=== PATIENT | male | born 1950 | race Caucasian/White ===

== ENCOUNTER 2019-11-23 14:32 | Inpatient (IN) | payer MEDICARE, OTHER ==
[2019-11-23] MEDS ORDERED: Ondansetron PF 4 MG/2 ML Vial ONE (16:05)
--- NOTE | 2019-11-23 16:21 | PDOC.FPRHP ---
- History of Present Illness Chief Complaint: Nausea History of Present Illness: 68 y/o M presented with nausea, biliary emesis, and abdominal pain that started this morning. Pt described the pain as throbbing and states that he has had hernia surgeries in the past and occasionally has pain with his current umbilical hernia however, his pain and nausea was worsening so he decided to come to the ER. He denied fever/chills, CP/SOB, diarrhea and constipation. ED Course: At [facility]: CT of abdomen showed strangulation of small bowel. He was given phenergan, afrin, 1L NS, 8mg zofran. Our ED: Hernia was reduced at bedside by Dr. Mcqueen. Pt made NPO and NG tube was placed. Pt given 4mg zofran. - History PMHx: -HTN -HLD PSHx: -Umbilical hernia repair as child -Left inguinal hernia repair -Valve replacement (mitral), 2019 -s/p removal of kidney due to cysts -appendectomy -cholecystecomy FHx: -CAD: father -mother still alive Social: denies etoh, tobacco, drug use. - Review of Systems General: denies: fever/chills, night sweats ENT: denies: nasal congestion, rhinorrhea Respiratory: denies: cough, congestion, shortness of breath Cardiovascular: denies: chest pain, palpitation, edema Gastrointestinal: reports: nausea, vomiting, abdominal pain. denies: diarrhea, constipation Genitourinary: denies: incontinence, dysuria, polyuria Musculoskeletal: denies: pain, tenderness, swelling - Vital signs BP: 181/102, HR 67, RR 12, 96%, Temp 98.2 - Physical Exam Constitutional: NAD, awake, alert and oriented HEENT: normocephalic and atraumatic Neck: supple Heart: RRR, normal S1/S2, no murmurs/rubs/gallops Lungs: CTAB, no respiratory distress, good air movement, no wheezing Abdomen: soft, bowel sounds present, other (2-2.5cm hernia defect noticed on LLQ , no tenderness to palpation) Skin: no rash/lesions, no jaundice Psychiatric: normal mood and affect, good judgment and insight, intact recent and remote memory FMR H&P: Results - Labs Result Diagrams: 11/24/19 06:25 11/24/19 06:25 Lab results: Outside ER labs: Lactic acid = 1.3, WBC = 11.0 - Radiology Interpretation CT scan - abdomen Status: report reviewed by me (Left paraumbilical hernia containing loop of small bowel with small bowel obstruction and probable strangulation) FMR H&P: A/P - Problem List (1) Strangulation obstruction of intestine Current Visit: Yes Status: Acute Code(s): K56.2 - VOLVULUS (2) HTN (hypertension) Current Visit: Yes Status: Acute Code(s): I10 - ESSENTIAL (PRIMARY) HYPERTENSION (3) HLD (hyperlipidemia) Current Visit: Yes Status: Acute Code(s): E78.5 - HYPERLIPIDEMIA, UNSPECIFIED - Plan 68 y/o M PMHx with HTN and HLD presented with nausea, emesis, and abdominal pain. ##Strangulated hernia -s/p manual reduction by Dr. Mcqueen -lactic = 1.3 -wbc = 11.0 -NPO with NG tube -zofran prn -LR @ 150mL -repeat CBC, BMP in AM ##HTN -home meds: verapamil and metoprolol -IV labetolol -monitor vitals Code: Full VTE PPX: lovenox GI PPX: famotidine Diet: NPO PCP: Yancy Dispo: admitted to observation. monitor pt and symptoms overnight. if does well overnight with no increasing signs of abdominal pain will likely d/c NG tube in AM and initiate diet. FMR H&P: Upper Level - Plan Date/Time: 11/23/19 1620 I, [Tisha Godfrey], have evaluated this patient and agree with findings/plan as outlined by internet marketing intern resident. Pertinent changes/additions are listed here. 68 yo M with hx of multiple abdominopelvic surgeries presented to ER for abdominal pain. Started this morning with associatedemesis starting this morning. Was found to have incarcerated paraumbilical hernia with concern for bowel strangulation on CT. Gen surgeon consulted and reduced hernia at bedside. Pt reports pain much improved after this. Per surgeons request he is being admitted for continued observation. ER: 1L NS bolus, Phenergan 25mg, Zofran 4mg, Hurricaine spray, NGT placed PSxHx: hx of inguinal hernia repair VS: 159/114mmHg, 97.8F, 99% RA 19RR/min PE: Gen-NAD, resting comfortably CV: RRR, no rubs or gallups Resp: CTAB, no resp. distress Abd: Soft, ND, NT, normoactive BS, no erythema around hernia Extrem: No edema, pulses palpated Labs: WBC 11, no bands Na 140 K3.9 Cl 109 HCO3 19 Cr 1.[address] Abd: Left paraumbilical bowel herniation with incarceration and possible strangulation #Paraumbilical hernia with incarceration/herniation -s/p bedside reduction by general surgeon -NGT in place, continue, NPO, mIVF -PRN antiemetics -admit to medical/obs for overnight observation -Consult gen srug #HTN -Antihypertensives PRN since NPO #HLD -Hold for now Diet: NPO, NGT to suction PCP: Yancy Code: Full Addendum - Attending - Attending Attestation Case discussed with Dr. Souza. See note from 11/23
[2019-11-23] MEDS ORDERED: Acetaminophen 325 MG TAB PO PRN (16:22)
[2019-11-23] MEDS ORDERED: Senokot S 8.6-50 MG TAB PO PRN (16:22)
[2019-11-23] MEDS ORDERED: Ondansetron ODT 4 MG TAB PO PRN (16:22)
[2019-11-23] MEDS ORDERED: Bisacodyl 5 MG TAB PO PRN (16:22)
--- NOTE | 2019-11-23 17:22 | PDOC.CONS ---
- Consultation CHIEF COMPLAINT: Abdominal pain HISTORY OF PRESENT ILLNESS: 68-year-old male presents with complaints of abdominal pain associated with nausea and biliary emesis since this morning. The onset of discomfort was last night. He reports that he began with biliary emesis this morning. This prompted presentation to his physician in [place]. He was transferred to [facility] for concern for small bowel obstruction and incarcerated umbilical hernia. Patient reports that he was unaware of the umbilical hernia in the past; however, he did undergo umbilical hernia repair as a child. REVIEW OF SYSTEMS: General: Denies recent weight changes, fever, or chills. Eyes: Denies visual changes, pain, or irritation ENT: Denies changes in hearing, nasal discharge, or sore throat Cardiovascular: Denies chest pain, palpitations, shortness of breath, or edema. Respiratory: Denies cough, shortness of breath, or wheezing Gastrointestinal: Positive per HPI Genitourinary: Denies frequent urination or dysuria Musculoskeletal: Denies pain or restricted motion Integumentary: Denies abnormal rashes, sores, or skin lesions Neurological: Denies numbness, tingling, or weakness. Psychiatric: Denies new onset anxiety or depression Endocrine: Denies temperature intolerances, polyuria, or excessive thirst Hematologic: Denies abnormal bruising or bleeding PAST MEDICAL HISTORY: Hypertension Hyperlipidemia PAST SURGICAL HISTORY: Umbilical hernia repair as a child Left inguinal hernia repair Unknown ureteral surgery Heart valve repair (mitral valve due to mitral regurgitation?) FAMILY HISTORY: Noncontributory SOCIAL HISTORY Non- smoker, denies illicit drug use, endorses occasional alcohol consumption. PHYSICAL EXAM: General: Alert and oriented, no acute distress ENT: Sclera anicteric, pupils equal and reactive, mucous membranes moist Neck: No jugular venous distention, trachea midline Cardiovascular: Regular rate and rhythm Pulmonary: Clear to auscultation Abdominal: Well-healed midline surgical incision. Periumbilical mass consistent with periumbilical hernia. Genitourinary: Normal anatomy Rectal: Deferred Integument: No abnormal rashes or lesions Musculoskeletal: No gross deformities or edema, normal range of motion LABORATORY: Laboratory analysis reviewed and is grossly normal. IMAGING: CT findings discussed with emergency room attending. Demonstrates findings consistent with possible small bowel obstruction due to periumbilical hernia. ASSESSMENT: 68-year-old male with partial small bowel obstruction due to periumbilical hernia. Hernia reduced in the emergency department. The natural history of incisional hernia/recurrent hernia was discussed in detail with the patient and he was encouraged to seek operative repair electively. PLAN: Recommend observation overnight with hospitalist service. Recommend continuation of nasogastric tube through the night with likely discontinuation in the morning and initiation of diet. If the patient is doing well with no signs of increasing abdominal pain changes in laboratory values, patient can be safely discharged home with follow-up in clinic for elective incisional hernia repair.
[2019-11-23] MEDS ORDERED: Famotidine/PF 20 mg/2ml Vial SLOW IVP SCH (19:15)
[2019-11-23 19:18] VITALS: BMI 32.1
[2019-11-23] MEDS: Labetalol HCl 100 MG/20 ML VIAL SLOW IVP PRN (19:25)
[2019-11-23] MEDS: Lactated Ringer's 1,000 ML IV SCH (19:26)
[2019-11-23] MEDS ORDERED: Promethazine HCl 12.5 MG in Sodium Chloride 0.9% 50 ML IVPB PRN (22:00)
[2019-11-23] MEDS: Ondansetron PF 4 MG/2 ML Vial IVP PRN (22:07)
[2019-11-24] MEDS: Labetalol HCl 100 MG/20 ML VIAL SLOW IVP PRN ×3 (01:27→19:47)
[2019-11-24] MEDS: Lactated Ringer's 1,000 ML IV SCH ×4 (01:30→20:50)
[2019-11-24] MEDS ORDERED: Ketorolac Tromethamine 30 MG/ML VIAL IVP SCH (05:15)
--- NOTE | 2019-11-24 05:36 | PDOC.FM ---
- Subjective Subjective: Pt resting comfortably at bedside. States that he No acute events overnight. States that he feels much better today and his nausea has abated and would like to eat breakfast. - Objective Vital Signs & Weight: Vital Signs (12 hours) Temp Pulse Resp BP BP Pulse Ox 11/24/19 05:17 75 163/98 H 11/24/19 04:00 98.4 F 71 18 163/93 H 97 11/24/19 01:27 75 163/96 H 11/24/19 00:00 98.5 F 75 18 163/96 H 97 11/23/19 20:22 98.6 F 72 20 173/105 H 98 11/23/19 20:00 98 11/23/19 19:25 70 11/23/19 19:18 98.6 F 70 20 205/118 H 96 Weight Weight 119.522 kg Result Diagrams: 11/24/19 06:25 11/24/19 06:25 Phys Exam - Physical Examination Constitutional: NAD HEENT: PERRLA Respiratory: no wheezing, no rales, no rhonchi, clear to auscultation bilateral Cardiovascular: RRR, no significant murmur, no rub Gastrointestinal: soft, non-tender Musculoskeletal: no edema, pulses present Psychiatric: normal affect, A&O x 3 Dx/Plan - Plan Plan: 68 y/o M PMHx with HTN and HLD presented with nausea, emesis, and abdominal pain. ##Strangulated hernia -s/p manual reduction by Dr. Mcqueen -lactic = 1.3 -wbc = 11.0 -NPO with NG tube -zofran prn -LR @ 150mL -CBC, BMP ##HTN -home meds: verapamil and metoprolol -IV labetolol -monitor vitals Code: Full VTE PPX: lovenox GI PPX: famotidine Diet: NPO PCP: Yancy Dispo: admitted to observation. no increasing signs of abdominal pain will try to progress with clear liquid diet, if tolerates, will progress to full diet. most likely d/c today. Addendum - Attending - Attending Attestation Date/Time: 11/24/192008 I personally evaluated the patient and discussed the management with Dr. Souza. H&P reviewed and repeat by me. I agree with the History, Examination, Assessment and Plan documented above with any addition or exceptions noted below. Encarcerated incisional hernia- reduced by surgery yesterday. Patient feels much improved with minimal nausea and no vomiting. Appreciate surgical recs. HTN- restart home meds.
[2019-11-24 07:01] LABS: #Basophils 0.1 thou/uL (0.0-0.2); #Lymphocytes 1.9 thou/uL (1.20-3.40); #Monocytes 1.6 thou/uL (0.11-0.59); #Neutrophils 11.5 thou/uL (1.40-6.50); %Basophils 0.3 % (0.0-1.0); %Eosinophils 0.1 % (0.0-10.0); %Lymphocytes 12.5 % (21.0-51.0); %Monocytes 10.7 % (0.0-10.0); %Neutrophils 76.3 % (42.0-75.0); Hemoglobin 16.7 g/dL (14.0-18.0); Mean Corpuscular HGB CONC 33.4 g/dL (32.0-36.0); Mean Corpuscular Hemoglobin 29.8 pg (27.0-31.0); Mean Corpuscular Volume 89.2 fL (78.0-98.0); Mean Platelet Volume 7.8 fL (7.4-10.4); Platelet Count 164 thou/uL (130-400); RBC Distribution Width 12.4 % (11.5-14.5); Red Blood Cell (RBC) Count 5.59 mill/uL (4.70-6.10); White Blood Cell (WBC) Count 15.1 thou/uL (4.8-10.8)
[2019-11-24 07:04] LABS: PTT 29.2 sec (22.9-36.1); Prothrombin Time 13.6 sec (12.0-14.7)
[2019-11-24 07:26] LABS: Anion Gap 13 mmol/L (10-20); BUN (Urea Nitrogen) 15 mg/dL (8.4-25.7); Calc. Creatinine Clearance 123 mL/min (70-130); Calcium 9.2 mg/dL (7.8-10.44); Carbon Dioxide 23 mmol/L (23-31); Chloride 106 mmol/L (98-107); Estimated GFR-MDRD 75; Glucose 131 mg/dL (80-115); Potassium 4.1 mmol/L (3.5-5.1); Sodium 138 mmol/L (136-145)
[2019-11-24] MEDS: Enoxaparin Sodium 40 MG/0.4 ML SYRINGE SC SCH (08:43)
[2019-11-24] MEDS: Famotidine/PF 20 mg/2ml Vial SLOW IVP SCH (08:44)
--- NOTE | 2019-11-24 17:14 | PDOC.GSPN ---
Surgery Progress Note: Subj - Subjective Patient reports: no new complaints (Feeling better this morning. Nausea and emesis reduced. Denies abdominal pain.) Surgery Progress Note: Obj - Vital signs Vital signs: Vital Signs - Most Recent Temp Pulse Resp BP Pulse Ox 98.5 F 68 16 159/94 H 98 11/24/19 16:00 11/24/19 16:00 11/24/19 16:00 11/24/19 16:00 11/24/19 16:00 - Physical Exam General: no distress, no pain Cardiovascular: regular rate and rhythm Respiratory: normal respiratory effort Abdomen: soft, non tender, nondistended Hernia: incisional Surgery Progress Note: Results - Labs Result Diagrams: 11/24/19 06:25 11/24/19 06:25 Lab results: Laboratory Results - last 24 hr 11/24/19 11/24/19 11/24/19 06:25 06:25 06:25 WBC 15.1 H RBC 5.59 Hgb 16.7 Hct 49.9 MCV 89.2 MCH 29.8 MCHC 33.4 RDW 12.4 Plt Count 164 MPV 7.8 Neutrophils % 76.3 H Lymphocytes % 12.5 L Monocytes % 10.7 H Eosinophils % 0.1 Basophils % 0.3 Neutrophils # 11.5 H Lymphocytes # 1.9 Monocytes # 1.6 H Eosinophils # 0.0 Basophils # 0.1 PT 13.6 INR 1.0 APTT 29.2 Sodium 138 Potassium 4.1 Chloride 106 Carbon Dioxide 23 Anion Gap 13 BUN 15 Creatinine 1.00 Estimated GFR (MDRD) 75 Glucose 131 H Calcium 9.2 - Radiology Interpretation CT scan - abdomen Status: report reviewed by me (Left paraumbilical hernia containing loop of small bowel with small bowel obstruction and probable strangulation) Surgery Progress Note: A/P - Plan Plan: Patient did not notice that his hernia was out again today and demonstrated that he was unlikely to be compliant with self reduction of hernia contents. Discussed proceeding with incisional hernia repair during this admission. We will plan for incisional hernia repair on November 26, 2019 (Tuesday).
[2019-11-24] MEDS ORDERED: Ketorolac Tromethamine 30 MG/ML VIAL IVP PRN (19:20)
[2019-11-24] MEDS ORDERED: Losartan 25 MG TAB PO SCH (21:00)
[2019-11-24] MEDS ORDERED: hydrALAZINE 20 MG/ML VIAL SLOW IVP PRN ×3 (21:48→22:07)
[2019-11-24] MEDS ORDERED: Labetalol HCl 100 MG/20 ML VIAL SLOW IVP PRN (22:06)
[2019-11-25] MEDS ORDERED: hydrALAZINE 20 MG/ML VIAL SLOW IVP PRN (00:24)
[2019-11-25] MEDS ORDERED: hydrALAZINE 20 MG/ML VIAL SLOW IVP SCH ×2 (00:30→00:36)
[2019-11-25] MEDS: Lactated Ringer's 1,000 ML IV SCH ×2 (00:45→13:55)
[2019-11-25] MEDS ORDERED: diphenhydrAMINE 50 MG/ML VIAL IVP SCH (02:00)
[2019-11-25] MEDS ORDERED: Metoclopramide HCl 10 MG/2 ML VIAL IVP SCH (02:00)
--- NOTE | 2019-11-25 02:01 | PDOC.BPN ---
- Brief Progress Note Nurse called and reported the patient had a headache and felt shaky. His last pressure was 172/72 and she was about to give his labetalol prn. We went to evaluate patient. Patient stated that he has had a headache since admission but it had worsened in the past hour. He notes he is concerned it is related to his anxiety noting he hasn't gotten his effexor and sometimes he gets shaky without it. Neuro exam was performed: CN II-XII were intact, strength intact, sensation intact, reflexes 2+. Heart: regular rate and rhythm, lungs clear to auscultation. Patient denies blurred vision, chest pain, shortness of breath, fever. He notes that his headache and shakiness has vastly improved since we entered the room. We will give benadryl, reglan and tylenol for the headache and to assist with his anxiety. Patient was receiving labetalol while we were in the room. Will get effexor this evening. We will follow up on pressure after the labetalol.
[2019-11-25] MEDS: Acetaminophen 500 MG TAB PO PRN ×2 (02:18→20:38)
--- NOTE | 2019-11-25 06:05 | PDOC.FM ---
- Subjective Subjective: pt resting comfortably in bed this morning. had severe range BPs last night. stated that he had anxiety and a headache last night and attributes this to not being on his antidepressants. vitals stable now states that he does not currently have a headache and is feeling better. - Objective Vital Signs & Weight: Vital Signs (12 hours) Temp Pulse Resp BP BP Pulse Ox 11/25/19 04:00 98.4 F 83 18 113/80 97 11/25/19 02:22 144/91 H 74 L 11/25/19 01:40 74 174/91 H 11/25/19 00:44 72 178/115 H 11/25/19 00:04 64 200/120 H 11/24/19 21:15 169/119 H 11/24/19 20:00 95 11/24/19 19:54 98.6 F 64 18 193/118 H 98 11/24/19 19:47 64 193/118 H Weight Admit Weight 119.748 kg Weight 119.522 kg I&O: 11/23/19 11/24/19 11/25/19 06:59 06:59 06:59 Intake Total 1650 1500 Output Total 850 190 Balance 800 1310 Result Diagrams: 11/25/19 06:20 11/25/19 06:20 Phys Exam - Physical Examination Constitutional: NAD HEENT: PERRLA Respiratory: no wheezing, no rales, no rhonchi Cardiovascular: RRR, no significant murmur, no rub Gastrointestinal: soft (some tenderness on LLQ, can feel hernia defect), positive bowel sounds Musculoskeletal: no edema Dx/Plan - Plan Plan: 68 y/o M PMHx with HTN and HLD presented with nausea, emesis, and abdominal pain. ##Strangulated hernia -s/p manual reduction by Dr. Mcqueen -lactic = 1.3 -wbc = 11.0--15.1--11.8 -NG tube in place -zofran prn -LR @ 150mL -gen surg recs: incisional hernia repair 11/25 due to contents of hernia being out again. -NPO @ 12AM ##HTN -home meds: verapamil and metoprolol and losartan -IV labetolol SBP > 160 -monitor vitals Code: Full VTE PPX: lovenox GI PPX: famotidine Diet: clear liquids, NPO @ 12AM PCP: Yancy Dispo: BP control. no increasing signs of abdominal pain, clear liquid diet until midnight. incisional repair planned for 11/25. Addendum - Attending - Attending Attestation Date/Time: 11/25/19 6375 I personally evaluated the patient and discussed the management with Dr. Souza. I agree with the History, Examination, Assessment and Plan documented above with any addition or exceptions noted below. Incarcerated incisional hernia- not reducible today. Plan for repair tomorrow with surgery HTN- bp elevated overnight- restart home meds today
[2019-11-25 06:35] LABS: #Basophils 0.1 thou/uL (0.0-0.2); #Eosinphils 0.1 thou/uL (0.0-0.7); #Lymphocytes 2.8 thou/uL (1.20-3.40); #Monocytes 1.3 thou/uL (0.11-0.59); #Neutrophils 7.6 thou/uL (1.40-6.50); %Basophils 0.7 % (0.0-1.0); %Eosinophils 0.8 % (0.0-10.0); %Lymphocytes 23.4 % (21.0-51.0); %Monocytes 10.9 % (0.0-10.0); %Neutrophils 64.3 % (42.0-75.0); Mean Corpuscular HGB CONC 31.8 g/dL (32.0-36.0); Mean Corpuscular Hemoglobin 28.9 pg (27.0-31.0); Mean Platelet Volume 7.9 fL (7.4-10.4); Platelet Count 176 thou/uL (130-400); RBC Distribution Width 12.6 % (11.5-14.5); Red Blood Cell (RBC) Count 5.54 mill/uL (4.70-6.10); White Blood Cell (WBC) Count 11.8 thou/uL (4.8-10.8)
[2019-11-25 06:57] LABS: Anion Gap 14 mmol/L (10-20); BUN (Urea Nitrogen) 17 mg/dL (8.4-25.7); Calc. Creatinine Clearance 127 mL/min (70-130); Calcium 9.2 mg/dL (7.8-10.44); Carbon Dioxide 22 mmol/L (23-31); Chloride 107 mmol/L (98-107); Estimated GFR-MDRD 77; Glucose 105 mg/dL (80-115); Potassium 3.7 mmol/L (3.5-5.1); Sodium 139 mmol/L (136-145)
[2019-11-25] MEDS: Venlafaxine HCl XR 150 MG CAP PO SCH (09:03)
[2019-11-25] MEDS: Enoxaparin Sodium 40 MG/0.4 ML SYRINGE SC SCH (09:03)
[2019-11-25] MEDS: Famotidine/PF 20 mg/2ml Vial SLOW IVP SCH (09:03)
--- NOTE | 2019-11-25 13:54 | RAD ---
PORTABLE CHEST: History: Pre-op FINDINGS: Heart size within normal limits. An aortic valve stent is present. NG tube is below the hemidiaphragm . The lungs are clear of infiltrates. IMPRESSION: No active intrathoracic disease. POS: ARNOL
--- NOTE | 2019-11-25 14:51 | CON ---
DATE OF CONSULTATION: REASON FOR CONSULTATION: Preoperative evaluation. PRIMARY DELIVERY TECHNICIAN: Dr. Stephon Benoit, [facility]. HISTORY OF PRESENT ILLNESS: Mr. Sosa is a 68-year-old gentleman, who will need surgery to repair a hernia, which has caused a small bowel obstruction. The patient is doing well from a cardiac standpoint. No chest pain or pressure. No heaviness or squeezing. The patient states he had a "leaky valve," and underwent valve replacement about a year ago at [facility] in [place]. Looking at the chest x-ray, it is a transcutaneous aortic valve replacement. He said he was found to have no obstructive coronary artery disease. The patient has been doing well from a cardiac standpoint. No chest pain or pressure. MEDICATIONS: At home; 1. Metoprolol dose is 100 mg at bedtime. 2. Verapamil 240. 3. Losartan. ALLERGIES: TO HYDROCODONE. REVIEW OF SYSTEMS: CONSTITUTIONAL: No significant weight gain or loss. VISION: No changes. HEARING: No changes. PULMONARY: No cough or wheezing. GASTROINTESTINAL: As outlined in the chart. SKIN: No rashes. The chest x-ray does show a transcutaneous aortic valve. Echocardiogram reveals normal left ventricular function. The transcutaneous aortic valve, mild insufficiency, no stenosis. CONCLUSION: 1. The patient should be low risk for noncardiac surgery. 2. Normally functioning transcutaneous aortic valve replacement. 3. Normal left ventricular function. RECOMMENDATIONS: I would reduce the verapamil dose down to 180 to try to reduce risk of having bradyarrhythmias. Otherwise, can proceed to surgery, to follow up with his parking control officer in the postoperative period. Job ID: [id number]
[2019-11-25] MEDS: Losartan 25 MG TAB PO SCH (20:37)
[2019-11-25] MEDS ORDERED: Venlafaxine HCl XR 150 MG CAP PO SCH (21:00)
--- NOTE | 2019-11-25 21:33 | PDOC.BPN ---
- Brief Progress Note Doing well. Denies nausea or vomiting. Denies abdominal pain. Evaluated by cardiology and felt to be low risk for surgery. Echocardiogram demonstrates a well-functioning aortic valve with mild leaking and normal ejection fraction. EXAM: VS: T 98.5 HR 86 BP 139/87 RR 18 SpO2 [ ] General: Alert and oriented, no acute distress, resting comfortably Pulmonary: No dyspnea or difficulty breathing Abdomen: Soft, non-distended, nontender CV: Regular rate and rhythm, palpable distal pulses Extremities: No edema I/O: [ ] oral intake NR UOP LABORATORY / IMAGING: Laboratory analysis reviewed and demonstrates a stable hemoglobin at 16. White blood cell count improved to 11.8 with 64% neutrophils. BMP within normal limit PLAN: 68-year-old male with intermittently incarcerated, recurrent, umbilical hernia with small bowel obstruction (resolved) Plan for recurrent hernia repair tomorrow. The relative risks and benefits of this procedure were discussed in detail with the patient, specifically addressing the risk of enterotomy and recurrence. Informed consent was obtained.
[2019-11-26] MEDS: Lactated Ringer's 1,000 ML IV SCH ×2 (03:01→17:15)
--- NOTE | 2019-11-26 07:12 | PDOC.FM ---
- Subjective Subjective: Patient reports nausea and frequent dry heaves. He denies abdominal pain but notes abdominal bloating. - Objective MAR Reviewed: Yes Vital Signs & Weight: Vital Signs (12 hours) Temp Pulse Resp BP Pulse Ox 11/26/19 04:53 97.3 F L 78 18 132/93 H 97 11/26/19 00:37 98.7 F 78 17 145/95 H 96 11/25/19 20:35 97 11/25/19 20:25 98.2 F 78 17 163/95 H 97 Weight Admit Weight 119.748 kg Weight 119.522 kg I&O: 11/25/19 11/26/19 11/27/19 06:59 06:59 06:59 Intake Total 2525 3500 Output Total 490 2800 Balance 2035 700 Result Diagrams: 11/25/19 06:20 11/25/19 06:20 Phys Exam - Physical Examination Constitutional: NAD NG tube in place. Patient dry heaving during exam. HEENT: moist MMs, sclera anicteric Neck: supple, full ROM Respiratory: no wheezing, clear to auscultation bilateral Cardiovascular: RRR, no significant murmur Gastrointestinal: soft, non-tender Abdominal hernia present Musculoskeletal: no edema, pulses present Neurological: non-focal, moves all 4 limbs Lymphatic: no nodes Psychiatric: normal affect, A&O x 3 Skin: no rash, normal turgor Dx/Plan - Plan Plan: 1. SBO 2/2 recurrent strangulated incisional hernia Underwent manual reduction by Dr. Mcqueen and recurred. NG tube in place. -Continue LR at 150mL -Continue zofran PRN -Incisional hernia repair this am -Pain control post-op 2. HTN BP ranged 130-160s/90s overnight. Cardiology consulted for pre-op evaluation. CXR showed no intrathoracic disease. -Continue home meds -Monitor vitals Code: Full VTE PPX: lovenox GI PPX: famotidine Diet: NPO PCP: Yancy Dispo: Home pending adequate pain control, ambulation, tolerating diet and voiding after hernia repair
[2019-11-26] MEDS: Famotidine/PF 20 mg/2ml Vial SLOW IVP SCH (08:11)
[2019-11-26] MEDS: Enoxaparin Sodium 40 MG/0.4 ML SYRINGE SC SCH (08:12)
[2019-11-26] MEDS: Venlafaxine HCl XR 150 MG CAP PO SCH (08:12)
[2019-11-26] MEDS: Ondansetron PF 4 MG/2 ML Vial IVP PRN (08:28)
[2019-11-26] MEDS ORDERED: Rocuronium Bromide 10 MG/ML (10ML VIAL) ONE (09:35)
[2019-11-26] MEDS ORDERED: Ondansetron PF 4 MG/2 ML Vial ONE (09:35)
[2019-11-26] MEDS ORDERED: EPHEDRINE 25 MG/5 ML SYRINGE ONE (09:35)
[2019-11-26] MEDS ORDERED: diphenhydrAMINE 50 MG/ML VIAL ONE (09:35)
[2019-11-26] MEDS ORDERED: PHENYLEPHRINE-NS 100 MCG/ML 10 ML SYRINGE ONE ×2 (09:35→15:11)
[2019-11-26] MEDS ORDERED: Calcium Chloride 1 GM/10 ML Abboject SYRINGE ONE (09:35)
[2019-11-26] MEDS ORDERED: Succinylcholine Chloride 20 MG/ML 10 ml SYRINGE FS ONE (09:35)
[2019-11-26] MEDS ORDERED: PROPOFOL 200 MG/20 ML VIAL ONE (09:35)
--- NOTE | 2019-11-26 11:11 | PDOC.BPN ---
- Brief Progress Note Doing well. Continues to deny nausea, vomiting, or significant bloating. Denies abdominal pain EXAM: VS: T 97.6 HR 80 BP 151/98 RR 18 SpO2 [ ] General: Alert and oriented, no acute distress, resting comfortably Pulmonary: No dyspnea or difficulty breathing Abdomen: Soft, non-distended, nontender. Incarcerated recurrent umbilical hernia CV: Regular rate and rhythm, palpable distal pulses Extremities: No edema I/O: [ ] oral intake [ ] UOP LABORATORY / IMAGING: No new labs PLAN: 68-year-old male with chronically incarcerated umbilical hernia resulting in partial small bowel obstruction. Plan for recurrent umbilical hernia repair later today. Okay to discharge home if the following criteria are met: Tolerating regular diet Ambulating independently Pain well controlled with oral analgesia only Voiding spontaneously Follow-up with Dr. Mcqueen 1 to 2 weeks. Please call [phone] for an appointment.
[2019-11-26 12:30] LABS: SARS-CoV-2 MS2 Positive; SARS-CoV-2 N Gene Negative; SARS-CoV-2 S Gene Negative; SARS-CoV-2 by NAA Not Detected (NotDetected); SARS-CoV-2 orf1ab Negative
--- NOTE | 2019-11-26 13:18 | PRG ---
DATE OF SERVICE: 11/26/2019 ADDENDUM: This is an addendum to the note of Dr. Rosario Pak. Mr. Sosa is a very pleasant 68-year-old man, who was admitted with a small bowel obstruction, found to be secondary to a strangulated hernia. The hernia was reduced by Surgery, but he has subsequently been scheduled for surgery later today. On visiting him this morning, he was awake and alert, in pleasant spirits, just awaiting his surgery. We will continue to follow with Surgery afterwards. Job ID: [id number]
[2019-11-26] MEDS ORDERED: Ondansetron HCl/PF 4 MG/2 ML Vial IVP PRN (14:12)
[2019-11-26] MEDS ORDERED: Meperidine HCl/PF 25 MG/ML VIAL SLOW IVP PRN (14:12)
[2019-11-26] MEDS ORDERED: Promethazine HCl 25 MG/ML VIAL SLOW IVP PRN (14:12)
[2019-11-26] MEDS ORDERED: Promethazine HCl 25 MG/ML VIAL IM PRN (14:12)
[2019-11-26] MEDS ORDERED: Lidocaine 1% w/Epinephrine 1:100K 20 ML VIAL ONE (14:28)
[2019-11-26] MEDS ORDERED: Bupivacaine 0.25% HCL 30 ML VIAL ONE (14:28)
[2019-11-26] MEDS ORDERED: Fentanyl 100 MCG/2 ML VIAL ONE ×3 (14:44→16:06)
[2019-11-26] MEDS ORDERED: Phenylephrine 10 MG/ML VIAL ONE (15:11)
--- NOTE | 2019-11-26 15:54 | PDOC.OP ---
Operative Note - Operative Note Operative Note: DATE OF SURGERY: November 26, 2019 SURGEON: Yovani Mcqueen MD PREOPERATIVE DIAGNOSIS: Umbilical hernia with obstruction POSTOPERATIVE DIAGNOSIS: Incisional hernia with obstruction PROCEDURE: Open incisional hernia repair INDICATIONS: 68-year-old male with a periumbilical incisional hernia who presented with partial small bowel obstruction. His hernia was reduced in the emergency department; however, prior to discharge home his hernia became incarcerated once more with obstructive symptoms. PROCEDURE IN DETAIL: The patient was brought to the operating room and positioned supine on the operating room table. After induction of general, endotracheal anesthesia, the patient was prepped and draped in the usual fashion. Prior to beginning the procedure, a complete timeout was performed with all members of the operative team being present in agreement. An incision was made overlying the hernia contents. The subcutaneous tissues were dissected with blunt dissection electrocautery until the hernia sac was encountered. Once the hernia sac was encountered, it was dissected circumferentially using blunt dissection and electrocautery. Given the chronicity of the hernia and its attachments, the hernia sac was entered. The hernia sac was divided at the fascial level and passed off. Examination of the underlying small bowel demonstrated ecchymotic bowel. Given the risk of translocation with mesh placement, we decided on performing a primary repair. The fascial edges were cleared of adhesions and subcutaneous tissue. The hernia defect was measured to be approximately 2 cm. This was closed with 0Prolene suture in interrupted fashion. The wound was copiously irrigated and hemostasis achieved. The subcutaneous tissue was closed with 3-0 Vicryl suture, and the skin was closed with 4-0 Monocryl suture in a running fashion. The incision was dressed with skin adhesive dressing. At the conclusion of the case, all sponge and instrument counts were correct. ESTIMATED BLOOD LOSS: Minimal COMPLICATIONS: None INTRAOPERATIVE BLOOD TRANSFUSIONS: None GRAFTS / IMPLANTS: None SPECIMENS: None DISPOSITION: The patient was transported to the postoperative recovery unit in good conditions to be turned to the floor when criteria met.
[2019-11-26] MEDS: Losartan 25 MG TAB PO SCH (21:19)
[2019-11-26] MEDS: Acetaminophen 500 MG TAB PO PRN (21:19)
[2019-11-27] MEDS: Acetaminophen 500 MG TAB PO PRN (06:13)
[2019-11-27] MEDS: Lactated Ringer's 1,000 ML IV SCH (06:13)
--- NOTE | 2019-11-27 06:49 | PDOC.FM ---
- Subjective Subjective: Patient says he feels significantly better this morning. He denies nausea, vomiting, or abdominal pain. He notes tenderness at the incision site. He tolerated a regular breakfast today. - Objective MAR Reviewed: Yes Vital Signs & Weight: Vital Signs (12 hours) Temp Pulse Resp BP Pulse Ox 11/27/19 04:53 97.8 F 80 18 150/96 H 95 11/27/19 01:00 160/99 H 11/27/19 00:45 98.8 F 90 18 162/109 H 96 11/26/19 20:02 97 11/26/19 20:00 98.5 F 84 17 163/114 H 97 Weight Admit Weight 119.748 kg Weight 119.522 kg I&O: 11/25/19 11/26/19 11/27/19 06:59 06:59 06:59 Intake Total 2525 3500 2640 Output Total 490 2800 1420 Balance 2035 700 1220 Result Diagrams: 11/25/19 06:20 11/25/19 06:20 Phys Exam - Physical Examination Constitutional: NAD HEENT: moist MMs, sclera anicteric Neck: supple, full ROM Respiratory: no wheezing, clear to auscultation bilateral Cardiovascular: RRR, no significant murmur Gastrointestinal: soft, non-tender, positive bowel sounds Clean incision site without erythema Musculoskeletal: no edema, pulses present Neurological: non-focal, moves all 4 limbs Lymphatic: no nodes Psychiatric: normal affect, A&O x 3 Skin: no rash, normal turgor Dx/Plan - Plan Plan: 1. Partial SBO 2/2 recurrent strangulated incisional hernia s/p repair Underwent incisional hernia repair on 11/25. -Discontinue LR as patient is tolerating PO -Continue zofran PRN -Ibuprofen 1g Q8H PRN -Regular diet -Will f/u with Dr. Mcqueen in 1 week 2. HTN BP ranged 130-160s/90s overnight. Cardiology consulted for pre-op evaluation. CXR showed no intrathoracic disease. Patient was offered a new medication for HTN but he expressed his desire to follow up with his PCP for medication changes. -Continue home meds -Monitor vitals -F/u with PCP for HTN Code: Full VTE PPX: lovenox GI PPX: famotidine Diet: Regular PCP: Yancy Dispo: Home today
[2019-11-27] MEDS: Venlafaxine HCl XR 150 MG CAP PO SCH (08:03)
[2019-11-27] MEDS: Famotidine/PF 20 mg/2ml Vial SLOW IVP SCH (08:03)
[2019-11-27] MEDS: Enoxaparin Sodium 40 MG/0.4 ML SYRINGE SC SCH (08:11)
[2019-11-27 12:58] VITALS: TEMP 98.7
--- NOTE | 2019-11-27 13:14 | PRG ---
DATE OF SERVICE: 11/27/2019 Mr. Sosa had surgery yesterday for his strangulated hernia. He is looking and feeling much better and will be discharged later this afternoon if he tolerates his diet okay. Job ID: [id number]
[2019-11-27 15:29] VITALS: BP 149/82
--- NOTE | 2019-11-28 04:03 | DIS ---
DATE OF ADMISSION: 11/23/2019 DATE OF DISCHARGE: 11/27/2019 RESIDENT: Rosario Pak MD ADMITTING ATTENDING: Chang Lacy MD DISCHARGE ATTENDING: Yamil Beard MD CONSULT: Dr. Mcqueen, General Surgery. PROCEDURES: Incisional hernia repair on 11/26/2019. PRIMARY DIAGNOSIS: Incisional hernia with obstruction status post repair. SECONDARY DIAGNOSIS: Hypertension. DISCHARGE MEDICATIONS: 1. Losartan 25 mg p.o. daily. 2. Metoprolol succinate 100 mg p.o. daily. 3. Venlafaxine HCL 150 mg p.o. daily. 4. Tylenol extra strength 1000 mg p.o. q.8 h. p.r.n. for 5 days. 5. Verapamil SR 120 mg p.o. daily. DISCONTINUED MEDICATIONS: None. HISTORY OF PRESENT ILLNESS: The patient presented to the [place] ED with complaints of nausea, biliary emesis, and abdominal pain. CT abdomen/pelvis was completed and revealed a strangulated hernia. The patient was transferred to [place] ED where the hernia was reduced at bedside by Dr. Mcqueen. An NG-tube was placed at that time. The hernia recurred and the patient was taken to the OR for an incisional hernia repair. After the operation, the patient reported improvement of his pain and nausea. He was able to ambulate without assistance, void spontaneously, tolerate an advanced diet and adequately control his pain with oral medication. During admission, the patient's blood pressure ranged from 130s-160s systolic. The patient reported his blood pressure has been chronically elevated in recent months. He was offered the option to begin a new BP medication in the hospital, but declined. The patient stated he would rather follow up with his PCP for blood pressure management. He will follow up with his PCP, Dr. Haines, within 1 week. He will also follow up with Dr. Mcqueen in 1 to 2 weeks for surgical follow up. DISPOSITION: Stable. DISCHARGE INSTRUCTIONS: Location, home. Diet, heart healthy. Activity, as tolerated. Follow up Dr. Haines (PCP) within [address] Mcqueen (General Surgery) within 1 to 2 weeks. Job ID: [id number] MTDD
== END 2019-11-27 16:32 | disposition home or self-care (01) | DRG 355 ==
LOC: ERS 14:32 → INTOOBSV 15:59 → OBSVTOIN 15:59 → T4-A 15:59
PROVIDERS: ADMIT Student in an Organized Health Care Education/Training Program; ATTEND Student in an Organized Health Care Education/Training Program
PROC: 0WQF0ZZ Repair Abdominal Wall, Open Approach (ICD-10-PCS; principal; 2019-11-26)
DX: K43.0 Incisional hernia with obstruction, without gangrene (principal); I10 Essential (primary) hypertension; E78.5 Hyperlipidemia, unspecified; E66.9 Obesity, unspecified; K59.00 Constipation, unspecified; Z79.01 Long term (current) use of anticoagulants; Z95.2 Presence of prosthetic heart valve; Z90.49 Acquired absence of other specified parts of digestive tract; Z87.891 Personal history of nicotine dependence; Z88.8 Allergy status to other drugs, medicaments and biological substances; Z68.32 Body mass index [BMI] 32.0-32.9, adult
CPT/HCPCS: 36415; 36600; 71045; 80048; 85025; 85610; 85730; 87635; 93306; 94760; 96361; 96372; 96374; 96375; 96376; G0378; J0360; J0690; J1200; J1650; J1885; J2370; J2405; J2550; J2704; J2765; J3010; S0020; S0028; U0003

== ENCOUNTER 2021-10-23 13:39 | Outpatient (CLI) | payer MEDICARE | END 2021-10-23 13:40 | disposition home or self-care (01) | LOC: SCSMRI 13:39 | PROVIDERS: ATTEND Neurological Surgery | DX: M48.062 Spinal stenosis, lumbar region with neurogenic claudication (principal); M41.9 Scoliosis, unspecified; M47.816 Spondylosis without myelopathy or radiculopathy, lumbar region; M47.817 Spondylosis without myelopathy or radiculopathy, lumbosacral region | CPT/HCPCS: 72148 ==

== ENCOUNTER 2022-09-11 13:46 | Emergency (ER) | payer MEDICARE ==
[2022-09-11] MEDS ORDERED: Ketorolac Tromethamine 30 MG/ML VIAL ONE (16:08)
[2022-09-11 18:40] LABS: Bilirubin Negative (Negative); Blood, Urine Negative (Negative); Clarity Clear (Clear); Glucose, Urine (Dipstick) Normal (Negative); Ketone, Urine Negative (Negative); Leukocyte Negative Leu/uL (Negative); Nitrite Negative (Negative); Protein, Urine (Dipstick) Negative (Neg-Trace); Specific Gravity, Urine 1.017 (1.002-1.036); Urobilinogen Normal mg/dL (Less than 2); pH, Urine 5.5 (5.0-9.0)
== END 2022-09-11 19:29 | disposition home or self-care (01) ==
LOC: ERS 13:46
DX: M54.50 Low back pain, unspecified (principal); I10 Essential (primary) hypertension; Z87.891 Personal history of nicotine dependence; Z79.82 Long term (current) use of aspirin; Z79.899 Other long term (current) drug therapy
CPT/HCPCS: 51701; 72131; 81003; 96372; J1885

== ENCOUNTER 2022-09-29 15:27 | Inpatient (IN) | payer MEDICARE ==
[2022-09-29 16:20] LABS: #Basophils 0.1 thou/uL (0.0-0.2); #Monocytes 1.3 thou/uL (0.11-0.59); #Neutrophils 11.1 thou/uL (1.40-6.50); %Basophils 0.3 % (0.0-1.0); %Eosinophils 0.2 % (0.0-10.0); %Lymphocytes 12.2 % (21.0-51.0); %Monocytes 9.1 % (0.0-10.0); %Neutrophils 77.5 % (42.0-75.0); Hemoglobin 13.8 g/dL (14.0-18.0); Mean Corpuscular HGB CONC 32.6 g/dL (32.0-36.0); Mean Corpuscular Hemoglobin 28.2 pg (27.0-31.0); Mean Corpuscular Volume 86.5 fl (78.0-98.0); Mean Platelet Volume 8.6 fL (7.4-10.4); Platelet Count 180 10x3/uL (130-400); RBC Distribution Width 13.7 % (11.5-14.5); Red Blood Cell (RBC) Count 4.89 mill/uL (4.70-6.10); White Blood Cell (WBC) Count 14.3 10x3/uL (4.8-10.8)
[2022-09-29 16:42] LABS: ALT (SGPT) 97 U/L (8-55); AST (SGOT) 50 U/L (5-34); Albumin 3.2 g/dL (3.4-4.8); Alkaline Phosphatase 118 U/L (40-110); Anion Gap 16 mmol/L (10-20); BUN (Urea Nitrogen) 26 mg/dL (8.4-25.7); Calc. Creatinine Clearance 0 mL/min (70-130); Calcium 8.9 mg/dL (7.8-10.44); Carbon Dioxide 19 mmol/L (23-31); Chloride 101 mmol/L (98-107); Estimated GFR 62; Globulin 4.2 g/dL (2.4-3.5); Glucose 110 mg/dL (80-115); Potassium 4.2 mmol/L (3.5-5.1); Protein, Total 7.4 g/dL (5.8-8.1); Sodium 132 mmol/L (136-145)
[2022-09-29] MEDS ORDERED: Morphine 4 MG/ML VIAL ONE (20:20)
[2022-09-29] MEDS ORDERED: Ondansetron PF 4 MG/2 ML Vial ONE (20:21)
[2022-09-29] MEDS ORDERED: cefTRIAXone (ROCEPHIN) 2 GM VIAL ONE (20:21)
[2022-09-29] MEDS ORDERED: Vancomycin 1 GM/200 ML (FROZEN) BAG ONE (20:52)
[2022-09-29] MEDS ORDERED: Ondansetron PF 4 MG/2 ML Vial IVP PRN (21:45)
[2022-09-29] MEDS ORDERED: Acetaminophen 325 MG TAB PO PRN ×2 (21:45→23:30)
[2022-09-29] MEDS ORDERED: Ondansetron ODT 4 MG TAB SL PRN (21:45)
[2022-09-29 22:27] VITALS: BMI 28.5
[2022-09-29] MEDS ORDERED: Morphine 4 MG/ML VIAL SLOW IVP PRN (23:34)
[2022-09-30] MEDS ORDERED: Vancomycin 1 GM in Premix Bag 1 BAG IVPB SCH (01:00)
[2022-09-30 02:03] LABS: Hemoglobin A1c 5.4 % (4.0-6.0)
[2022-09-30 03:12] LABS: HBSAg Index 0.25 S/CO (0-0.99); HIV (1/2) Antibody/Antigen Non-Reactive (NonReactive); HIV 1/2 INDEX 0.18 S/CO (<1.00); Hep B Core Total Ab Non-Reactive (NonReactive); Hep B Core Total Index 0.15 S/CO (0-0.79); Hep B Surf Ag Non-Reactive S/CO (NonReactive)
[2022-09-30] MEDS ORDERED: tiZANidine HCl 4 MG TAB PO PRN (03:36)
[2022-09-30 03:39] LABS: HBSAB Concentration 14.94 mIU/mL; Hep B Surf AB Reactive (NonReactive); Hep C IgG Ab Reflex HepC Qnt S/CO (NonReactive); Hep C Index 3.88 S/CO (0-0.79)
[2022-09-30] MEDS: Ibuprofen 800 MG TAB PO PRN (04:02)
[2022-09-30 05:28] LABS: #Basophils 0.1 thou/uL (0.0-0.2); #Eosinphils 0.1 thou/uL (0.0-0.7); #Monocytes 1.2 thou/uL (0.11-0.59); #Neutrophils 7.8 thou/uL (1.40-6.50); %Basophils 0.4 % (0.0-1.0); %Eosinophils 0.7 % (0.0-10.0); %Lymphocytes 17.9 % (21.0-51.0); %Monocytes 10.4 % (0.0-10.0); %Neutrophils 69.9 % (42.0-75.0); Hemoglobin 11.9 g/dL (14.0-18.0); Mean Corpuscular HGB CONC 32.6 g/dL (32.0-36.0); Mean Corpuscular Hemoglobin 28.9 pg (27.0-31.0); Mean Corpuscular Volume 88.6 fl (78.0-98.0); Mean Platelet Volume 8.6 fL (7.4-10.4); Platelet Count 141 10x3/uL (130-400); RBC Distribution Width 13.9 % (11.5-14.5); Red Blood Cell (RBC) Count 4.12 mill/uL (4.70-6.10); White Blood Cell (WBC) Count 11.2 10x3/uL (4.8-10.8)
[2022-09-30 05:57] LABS: ALT (SGPT) 74 U/L (8-55); AST (SGOT) 34 U/L (5-34); Albumin 2.7 g/dL (3.4-4.8); Alkaline Phosphatase 101 U/L (40-110); Anion Gap 14 mmol/L (10-20); BUN (Urea Nitrogen) 18 mg/dL (8.4-25.7); Bilirubin, Total 0.7 mg/dL (0.2-1.2); Calc. Creatinine Clearance 110 mL/min (70-130); Calcium 8.3 mg/dL (7.8-10.44); Carbon Dioxide 17 mmol/L (23-31); Chloride 106 mmol/L (98-107); Estimated GFR 89; Globulin 3.5 g/dL (2.4-3.5); Glucose 96 mg/dL (80-115); Potassium 3.8 mmol/L (3.5-5.1); Protein, Total 6.2 g/dL (5.8-8.1); Sodium 133 mmol/L (136-145)
[2022-09-30] MEDS: Aspirin Chewable 81 MG TAB PO SCH (08:41)
[2022-09-30] MEDS: Magnesium Oxide 400 MG TAB PO SCH (08:41)
[2022-09-30] MEDS: Atorvastatin Calcium 40 MG TAB PO SCH (08:41)
[2022-09-30] MEDS ORDERED: Sodium Chloride 0.9% 1,000 ML IV SCH ×2 (08:45→08:49)
[2022-09-30] MEDS ORDERED: Vancomycin HCl 1.5 GM in Sodium Chloride 0.9% 250 ML 300 ML IVPB SCH (09:00)
[2022-09-30] MEDS: Vancomycin 1.5 GRAM/300 ML BAG 1.5 GM in Premix Bag 1 BAG IVPB SCH ×2 (09:52→21:49)
[2022-09-30 11:26] LABS: Syphilis Antibody Nonreactive (Nonreactive); Syphilis Antibody Index 0.07 S/CO (<1.00 Non-Reactive)
[2022-09-30] MEDS ORDERED: Sodium Chloride 0.9% 500 ML IV SCH (11:45)
[2022-09-30] MEDS ORDERED: Sodium Bicarbonate 2.5 MEQ/5 ML VIAL ONE (13:10)
[2022-09-30] MEDS: cefTRIAXone\\ROCEPHIN 2 GM in Sodium Chloride 0.9% 100 ML IVPB SCH (20:20)
[2022-09-30] MEDS: traMADol HCl 50 MG TAB PO PRN (20:29)
[2022-10-01] MEDS: Ibuprofen 800 MG TAB PO PRN (01:29)
[2022-10-01] MEDS: Morphine 4 MG/ML VIAL SLOW IVP PRN ×2 (01:30→04:59)
[2022-10-01 05:24] LABS: #Eosinphils 0.1 thou/uL (0.0-0.7); #Monocytes 0.9 thou/uL (0.11-0.59); #Neutrophils 6.7 thou/uL (1.40-6.50); %Basophils 0.4 % (0.0-1.0); %Eosinophils 0.9 % (0.0-10.0); %Monocytes 9.2 % (0.0-10.0); %Neutrophils 67.1 % (42.0-75.0); Hemoglobin 12.1 g/dL (14.0-18.0); Mean Corpuscular HGB CONC 31.9 g/dL (32.0-36.0); Mean Corpuscular Hemoglobin 28.3 pg (27.0-31.0); Mean Corpuscular Volume 88.6 fl (78.0-98.0); Mean Platelet Volume 8.7 fL (7.4-10.4); Platelet Count 144 10x3/uL (130-400); RBC Distribution Width 13.8 % (11.5-14.5); Red Blood Cell (RBC) Count 4.28 mill/uL (4.70-6.10)
[2022-10-01 05:46] LABS: ALT (SGPT) 60 U/L (8-55); AST (SGOT) 29 U/L (5-34); Albumin 2.7 g/dL (3.4-4.8); Alkaline Phosphatase 100 U/L (40-110); Anion Gap 15 mmol/L (10-20); BUN (Urea Nitrogen) 14 mg/dL (8.4-25.7); Bilirubin, Total 0.3 mg/dL (0.2-1.2); Calc. Creatinine Clearance 123 mL/min (70-130); Calcium 8.1 mg/dL (7.8-10.44); Carbon Dioxide 17 mmol/L (23-31); Chloride 108 mmol/L (98-107); Estimated GFR 95; Globulin 3.6 g/dL (2.4-3.5); Glucose 97 mg/dL (80-115); Potassium 3.8 mmol/L (3.5-5.1); Protein, Total 6.3 g/dL (5.8-8.1); Sodium 136 mmol/L (136-145)
[2022-10-01] MEDS: Magnesium Oxide 400 MG TAB PO SCH (08:54)
[2022-10-01] MEDS: Atorvastatin Calcium 40 MG TAB PO SCH (08:54)
[2022-10-01] MEDS: Aspirin Chewable 81 MG TAB PO SCH (08:54)
[2022-10-01 09:28] LABS: Vancomycin, Trough 17.6 ug/mL
[2022-10-01] MEDS ORDERED: Vancomycin 1.5 GRAM/300 ML BAG 1.5 GM in Premix Bag 1 BAG IVPB SCH (10:00)
[2022-10-01] MEDS: Vancomycin 1.5 GRAM/300 ML BAG 1.5 GM in Premix Bag 1 BAG IVPB SCH ×2 (13:15→22:42)
[2022-10-01] MEDS: cefTRIAXone\\ROCEPHIN 2 GM in Sodium Chloride 0.9% 100 ML IVPB SCH (21:16)
[2022-10-02] MEDS: Morphine 4 MG/ML VIAL SLOW IVP PRN (01:58)
[2022-10-02] MEDS: Ibuprofen 800 MG TAB PO PRN (01:59)
[2022-10-02 06:01] LABS: #Eosinphils 0.1 thou/uL (0.0-0.7); #Monocytes 0.7 thou/uL (0.11-0.59); #Neutrophils 4.9 thou/uL (1.40-6.50); %Basophils 0.5 % (0.0-1.0); %Eosinophils 1.8 % (0.0-10.0); %Lymphocytes 25.8 % (21.0-51.0); %Monocytes 8.9 % (0.0-10.0); %Neutrophils 62.7 % (42.0-75.0); Hemoglobin 12.1 g/dL (14.0-18.0); Mean Corpuscular Hemoglobin 27.9 pg (27.0-31.0); Mean Corpuscular Volume 87.3 fl (78.0-98.0); Mean Platelet Volume 8.4 fL (7.4-10.4); Platelet Count 153 10x3/uL (130-400); RBC Distribution Width 13.6 % (11.5-14.5); Red Blood Cell (RBC) Count 4.33 mill/uL (4.70-6.10); White Blood Cell (WBC) Count 7.9 10x3/uL (4.8-10.8)
[2022-10-02 06:27] LABS: ALT (SGPT) 74 U/L (8-55); AST (SGOT) 46 U/L (5-34); Albumin 2.8 g/dL (3.4-4.8); Alkaline Phosphatase 99 U/L (40-110); Anion Gap 12 mmol/L (10-20); BUN (Urea Nitrogen) 12 mg/dL (8.4-25.7); Bilirubin, Total 0.4 mg/dL (0.2-1.2); Calc. Creatinine Clearance 120 mL/min (70-130); Calcium 8.5 mg/dL (7.8-10.44); Carbon Dioxide 20 mmol/L (23-31); Chloride 109 mmol/L (98-107); Estimated GFR 94; Globulin 3.5 g/dL (2.4-3.5); Glucose 99 mg/dL (80-115); Potassium 3.5 mmol/L (3.5-5.1); Protein, Total 6.3 g/dL (5.8-8.1); Sodium 137 mmol/L (136-145)
[2022-10-02] MEDS: Aspirin Chewable 81 MG TAB PO SCH (08:22)
[2022-10-02] MEDS: Atorvastatin Calcium 40 MG TAB PO SCH (08:22)
[2022-10-02] MEDS: Magnesium Oxide 400 MG TAB PO SCH (08:22)
[2022-10-02] MEDS: Vancomycin 1.5 GRAM/300 ML BAG 1.5 GM in Premix Bag 1 BAG IVPB SCH ×2 (09:23→21:47)
[2022-10-02] MEDS: traMADol HCl 50 MG TAB PO PRN ×2 (09:39→21:57)
[2022-10-02 19:37] LABS: Hep C PCR-Quant HCV Not Detected IU/mL (.)
[2022-10-02] MEDS: cefTRIAXone\\ROCEPHIN 2 GM in Sodium Chloride 0.9% 100 ML IVPB SCH (20:31)
[2022-10-02 22:22] LABS: Vancomycin, Trough 23.1 ug/mL
[2022-10-03] MEDS: traMADol HCl 50 MG TAB PO PRN (05:19)
[2022-10-03] MEDS ORDERED: Acetaminophen 325 MG TAB PO SCH (08:00)
[2022-10-03] MEDS ORDERED: Ibuprofen 800 MG TAB PO SCH (08:00)
[2022-10-03 08:36] LABS: #Basophils 0.1 thou/uL (0.0-0.2); #Eosinphils 0.2 thou/uL (0.0-0.7); #Monocytes 0.8 thou/uL (0.11-0.59); %Basophils 0.5 % (0.0-1.0); %Eosinophils 1.6 % (0.0-10.0); %Lymphocytes 21.8 % (21.0-51.0); %Monocytes 7.5 % (0.0-10.0); %Neutrophils 68.3 % (42.0-75.0); Hemoglobin 12.9 g/dL (14.0-18.0); Mean Corpuscular HGB CONC 31.8 g/dL (32.0-36.0); Mean Corpuscular Hemoglobin 27.6 pg (27.0-31.0); Mean Corpuscular Volume 86.9 fl (78.0-98.0); Mean Platelet Volume 8.3 fL (7.4-10.4); Platelet Count 179 10x3/uL (130-400); RBC Distribution Width 13.5 % (11.5-14.5); Red Blood Cell (RBC) Count 4.67 mill/uL (4.70-6.10); White Blood Cell (WBC) Count 10.3 10x3/uL (4.8-10.8)
[2022-10-03 08:58] LABS: ALT (SGPT) 76 U/L (8-55); AST (SGOT) 38 U/L (5-34); Alkaline Phosphatase 104 U/L (40-110); Anion Gap 13 mmol/L (10-20); BUN (Urea Nitrogen) 11 mg/dL (8.4-25.7); Bilirubin, Total 0.6 mg/dL (0.2-1.2); Calc. Creatinine Clearance 122 mL/min (70-130); Calcium 8.8 mg/dL (7.8-10.44); Carbon Dioxide 22 mmol/L (23-31); Chloride 104 mmol/L (98-107); Estimated GFR 94; Globulin 3.7 g/dL (2.4-3.5); Glucose 90 mg/dL (80-115); Potassium 3.4 mmol/L (3.5-5.1); Protein, Total 6.7 g/dL (5.8-8.1); Sodium 136 mmol/L (136-145)
[2022-10-03] MEDS: Amlodipine 5 MG TAB PO SCH (09:57)
[2022-10-03] MEDS: Magnesium Oxide 400 MG TAB PO SCH (09:57)
[2022-10-03] MEDS: Atorvastatin Calcium 40 MG TAB PO SCH (09:57)
[2022-10-03] MEDS: Aspirin Chewable 81 MG TAB PO SCH (09:57)
[2022-10-03] MEDS: cefTRIAXone\\ROCEPHIN 2 GM in Sodium Chloride 0.9% 100 ML IVPB SCH (19:49)
[2022-10-04 05:28] LABS: #Eosinphils 0.2 thou/uL (0.0-0.7); #Monocytes 0.8 thou/uL (0.11-0.59); #Neutrophils 6.9 thou/uL (1.40-6.50); %Basophils 0.4 % (0.0-1.0); %Eosinophils 1.6 % (0.0-10.0); %Lymphocytes 19.9 % (21.0-51.0); %Monocytes 7.6 % (0.0-10.0); %Neutrophils 70.1 % (42.0-75.0); Hemoglobin 12.4 g/dL (14.0-18.0); Mean Corpuscular HGB CONC 32.6 g/dL (32.0-36.0); Mean Corpuscular Hemoglobin 28.4 pg (27.0-31.0); Mean Platelet Volume 8.2 fL (7.4-10.4); Platelet Count 189 10x3/uL (130-400); RBC Distribution Width 13.7 % (11.5-14.5); Red Blood Cell (RBC) Count 4.37 mill/uL (4.70-6.10); White Blood Cell (WBC) Count 9.9 10x3/uL (4.8-10.8)
[2022-10-04 05:54] LABS: ALT (SGPT) 64 U/L (8-55); AST (SGOT) 30 U/L (5-34); Alkaline Phosphatase 104 U/L (40-110); Anion Gap 13 mmol/L (10-20); BUN (Urea Nitrogen) 13 mg/dL (8.4-25.7); Bilirubin, Total 0.6 mg/dL (0.2-1.2); Calc. Creatinine Clearance 125 mL/min (70-130); Calcium 8.9 mg/dL (7.8-10.44); Carbon Dioxide 24 mmol/L (23-31); Chloride 106 mmol/L (98-107); Estimated GFR 95; Globulin 3.9 g/dL (2.4-3.5); Glucose 99 mg/dL (80-115); Potassium 3.7 mmol/L (3.5-5.1); Protein, Total 6.9 g/dL (5.8-8.1); Sodium 139 mmol/L (136-145)
[2022-10-04] MEDS ORDERED: Propofol 500 MG/50 ML VIAL ONE (09:37)
[2022-10-04] MEDS: Amlodipine 5 MG TAB PO SCH (11:58)
[2022-10-04] MEDS: Magnesium Oxide 400 MG TAB PO SCH (11:58)
[2022-10-04] MEDS: Aspirin Chewable 81 MG TAB PO SCH (11:58)
[2022-10-04] MEDS: Atorvastatin Calcium 40 MG TAB PO SCH (11:58)
[2022-10-04] MEDS: traMADol HCl 50 MG TAB PO PRN (20:36)
[2022-10-04] MEDS: cefTRIAXone\\ROCEPHIN 2 GM in Sodium Chloride 0.9% 100 ML IVPB SCH (20:37)
[2022-10-05 05:45] LABS: #Basophils 0.1 thou/uL (0.0-0.2); #Eosinphils 0.4 thou/uL (0.0-0.7); #Neutrophils 5.9 thou/uL (1.40-6.50); %Basophils 0.5 % (0.0-1.0); %Eosinophils 3.9 % (0.0-10.0); %Lymphocytes 23.4 % (21.0-51.0); %Monocytes 10.1 % (0.0-10.0); %Neutrophils 61.7 % (42.0-75.0); Hemoglobin 12.6 g/dL (14.0-18.0); Mean Corpuscular HGB CONC 32.9 g/dL (32.0-36.0); Mean Corpuscular Volume 88.2 fl (78.0-98.0); Mean Platelet Volume 8.5 fL (7.4-10.4); Platelet Count 201 10x3/uL (130-400); RBC Distribution Width 13.7 % (11.5-14.5); Red Blood Cell (RBC) Count 4.34 mill/uL (4.70-6.10); White Blood Cell (WBC) Count 9.6 10x3/uL (4.8-10.8)
[2022-10-05 06:10] LABS: ALT (SGPT) 59 U/L (8-55); AST (SGOT) 28 U/L (5-34); Alkaline Phosphatase 104 U/L (40-110); Anion Gap 14 mmol/L (10-20); BUN (Urea Nitrogen) 14 mg/dL (8.4-25.7); Bilirubin, Total 0.5 mg/dL (0.2-1.2); Calc. Creatinine Clearance 123 mL/min (70-130); Calcium 8.7 mg/dL (7.8-10.44); Carbon Dioxide 22 mmol/L (23-31); Chloride 105 mmol/L (98-107); Estimated GFR 95; Globulin 3.4 g/dL (2.4-3.5); Glucose 88 mg/dL (80-115); Potassium 3.9 mmol/L (3.5-5.1); Protein, Total 6.4 g/dL (5.8-8.1); Sodium 137 mmol/L (136-145)
[2022-10-05 07:26] LABS: HSV 1 - DNA Negative (Negative); HSV 2 - DNA Positive (Negative)
[2022-10-05 08:42] VITALS: BP 132/99; TEMP 98
[2022-10-05] MEDS: Aspirin Chewable 81 MG TAB PO SCH (09:32)
[2022-10-05] MEDS: Magnesium Oxide 400 MG TAB PO SCH (09:32)
[2022-10-05] MEDS: Amlodipine 5 MG TAB PO SCH (09:32)
[2022-10-05] MEDS: Atorvastatin Calcium 40 MG TAB PO SCH (09:32)
== END 2022-10-05 14:00 | DRG 871 ==
LOC: ERS 15:27 → SURG A 21:59
PROVIDERS: ADMIT Internal Medicine; ATTEND Internal Medicine
PROC: 0S903ZZ Drainage of Lumbar Vertebral Joint, Percutaneous Approach (ICD-10-PCS; 2022-09-30)
PROC: 02HV33Z Insertion of Infusion Device into Superior Vena Cava, Percutaneous Approach (ICD-10-PCS; principal; 2022-10-04)
PROC: B5181ZA Fluoroscopy of Superior Vena Cava using Low Osmolar Contrast, Guidance (ICD-10-PCS; 2022-10-04)
PROC: B548ZZA Ultrasonography of Superior Vena Cava, Guidance (ICD-10-PCS; 2022-10-04)
PROC: B24BZZ4 Ultrasonography of Heart with Aorta, Transesophageal (ICD-10-PCS; 2022-10-04)
DX: A41.9 Sepsis, unspecified organism (principal); I33.0 Acute and subacute infective endocarditis; K68.12 Psoas muscle abscess; M46.26 Osteomyelitis of vertebra, lumbar region; L02.31 Cutaneous abscess of buttock; E87.1 Hypo-osmolality and hyponatremia; I10 Essential (primary) hypertension; G89.29 Other chronic pain; M48.061 Spinal stenosis, lumbar region without neurogenic claudication; L98.419 Non-pressure chronic ulcer of buttock with unspecified severity; H91.91 Unspecified hearing loss, right ear; G62.9 Polyneuropathy, unspecified; Z60.2 Problems related to living alone; M46.46 Discitis, unspecified, lumbar region; M60.9 Myositis, unspecified; I95.9 Hypotension, unspecified; M41.56 Other secondary scoliosis, lumbar region; E78.5 Hyperlipidemia, unspecified; Z95.2 Presence of prosthetic heart valve; Z88.8 Allergy status to other drugs, medicaments and biological substances; Z79.82 Long term (current) use of aspirin; Z79.899 Other long term (current) drug therapy; Z90.49 Acquired absence of other specified parts of digestive tract; Z87.891 Personal history of nicotine dependence
CPT/HCPCS: 36415; 36569; 72131; 77012; 80053; 80202; 83036; 83605; 83930; 83935; 84300; 85025; 85652; 86140; 86704; 86706; 86780; 86803; 87040; 87070; 87077; 87149; 87186; 87205; 87340; 87389; 87522; 87529; 93306; 93312; 96365; 96367; 96375; 97139; C1751; J0696; J1650; J2270; J2405; J2704; J3370; J3370-JW; J3490; J7030; J7050

== ENCOUNTER 2023-10-27 08:38 | Outpatient (CLI) | payer MEDICARE ==
[2023-10-27 12:50] LABS: #Basophils 0.02 10x3/uL (0.0-0.2); #Eosinphils 0.13 10x3/uL (0.0-0.5); #Monocytes 0.64 10x3/uL (0.0-1.1); #Neutrophils 3.63 10x3/uL (1.5-8.4); %Basophils 0.3 % (0.0-2.0); %Eosinophils 1.7 % (0.0-6.0); %Lymphocytes 41.9 % (18.0-47.0); %Monocytes 8.4 % (0.0-10.0); %Neutrophils 47.4 % (40.0-75.0); Hematocrit 45.5 % (38.8-50.0); Hemoglobin 15.1 g/dL (13.5-17.5); Mean Corpuscular HGB CONC 33.2 g/dL (32.0-36.0); Mean Corpuscular Hemoglobin 28.8 pg (27.0-33.0); Mean Corpuscular Volume 86.7 fL (81.2-95.1); Mean Platelet Volume 9.8 fL (7.4-10.4); Platelet Count 171 10x3/uL (150-450); RBC Distribution Width 13.2 % (11.5-14.5); Red Blood Cell (RBC) Count 5.25 10x6/uL (4.32-5.72); White Blood Cell (WBC) Count 7.6 10x3/uL (3.5-10.5)
[2023-10-27 13:08] LABS: Anion Gap 14 mmol/L (10-20); BUN (Urea Nitrogen) 23 mg/dL (8.4-25.7); Calc. Creatinine Clearance 0 mL/min (70-130); Calcium 9.2 mg/dL (7.8-10.44); Carbon Dioxide 20 mmol/L (23-31); Chloride 106 mmol/L (98-107); Estimated GFR 79; Glucose 80 mg/dL (80-115); Potassium 4.4 mmol/L (3.5-5.1); Sodium 136 mmol/L (136-145)
== END 2023-10-27 08:39 | disposition home or self-care (01) ==
LOC: LABBT 08:38
PROVIDERS: ATTEND Orthopaedic Surgery Hand Surgery
DX: Z01.818 Encounter for other preprocedural examination (principal); M72.0 Palmar fascial fibromatosis [Dupuytren]
CPT/HCPCS: 80048; 85025; 93005; 93010

== ENCOUNTER 2023-11-01 06:30 | Day surgery (SDC) | payer MEDICARE ==
[2023-10-27 09:06] VITALS: BMI 31.2
[2023-11-01] MEDS ORDERED: fentaNYL 50 mcg/mL 1 mL Vial ONE (07:56)
[2023-11-01] MEDS ORDERED: Ropivacaine 0.5% HCl/PF (150 MG/30 ML VIAL) ONE (07:57)
[2023-11-01] MEDS ORDERED: CEFAZOLIN 2 GM VIAL ONE (07:59)
[2023-11-01] MEDS ORDERED: Sodium Chloride 0.9% 100 ML ONE (07:59)
[2023-11-01] MEDS ORDERED: Ondansetron PF 4 MG/2 ML Vial ONE (08:04)
[2023-11-01] MEDS ORDERED: PROPOFOL 20 ML ONE (08:04)
[2023-11-01] MEDS ORDERED: ePHEDrine Sulfate 50 MG/10 ML VIAL ONE ×2 (08:34→09:20)
[2023-11-01] MEDS ORDERED: Dexamethasone 20 MG/5 ML VIAL ONE (08:38)
[2023-11-01] MEDS ORDERED: PHENYLEPHRINE-NS 100 MCG/ML 10 ML SYRINGE ONE (09:14)
== END 2023-11-01 12:59 | disposition home or self-care (01) ==
LOC: SDC 06:30
PROVIDERS: ATTEND Orthopaedic Surgery Hand Surgery
PROC: 0JNJ0ZZ Release Right Hand Subcutaneous Tissue and Fascia, Open Approach (ICD-10-PCS; principal; 2023-11-01)
PROC: 01N60ZZ Release Radial Nerve, Open Approach (ICD-10-PCS; 2023-11-01)
DX: M72.0 Palmar fascial fibromatosis [Dupuytren] (principal); R01.1 Cardiac murmur, unspecified; I10 Essential (primary) hypertension; K21.9 Gastro-esophageal reflux disease without esophagitis; F32.A Depression, unspecified; M19.90 Unspecified osteoarthritis, unspecified site; M10.9 Gout, unspecified; Z90.49 Acquired absence of other specified parts of digestive tract; Z90.89 Acquired absence of other organs; Z98.890 Other specified postprocedural states; Z87.891 Personal history of nicotine dependence
CPT/HCPCS: 26123; 26125 ×2; 64415; 64702 ×3; A6223; J1100; J2405; J2704; J2795; J3010; J3490; 88304